=== PATIENT | female | born 1990 | race Caucasian/White ===

== ENCOUNTER 2018-08-22 12:35 | Outpatient (REF) | payer MEDICAID, SELFPAY | END 2018-08-22 12:55 | LOC: NCHCN 12:35 | PROVIDERS: PCP Family Medicine; Visit Provider Nurse Practitioner | DX: J02.9 Acute pharyngitis, unspecified (principal) | CPT/HCPCS: 87070 ==

== ENCOUNTER 2019-12-24 13:34 | Outpatient (REF) | payer SELFPAY ==
[2019-12-26 21:55] LABS: SARS-CoV-2 RNA Undetected (Undetected); SARS-CoV-2 Specimen Source Nasopharynx
== END 2019-12-24 13:54 ==
LOC: NCHCN 13:34
PROVIDERS: PCP Family Medicine; Visit Provider Nurse Practitioner Family
DX: Z11.59 Encounter for screening for other viral diseases (principal)
CPT/HCPCS: U0003

== ENCOUNTER 2021-07-21 14:14 | Outpatient (REF) | payer MEDICAID, SELFPAY ==
--- NOTE | 2021-07-21 11:00 | PAPFT_PTH ---
PAT[facility]: [id number] AGE/SX: 31/F ROOM: RE07/21/[address]: Litzy Mcgee : 1990 BED: DIS: 07/21/2021 SPEC #: [id number] RECD: 07/21/21 17:44 STATUS: LINDA RENehemias #: [id number] BHARAT: 07/21/21 11:[address]: Litzy Mcgee DEPT: [facility] Cytology RECD BY: Jacinda Barrett ENTERED: 07/21/21 17:45 SP TYPE: PAPFT OTHR DR: Judith Bonds Tissues: 1 - CX/ENDOCX FOR PAP SMEARS Procedures: PAP THIN PREP/UVM Screening Comments: [id number] (CHLAMYDIA/GC)
[2021-07-22 11:01] LABS: Hepatitis C Ab w Rflx HCV PCR Negative (Negative)
[2021-07-22 11:02] LABS: HIV-1/2 Ag & Ab Screen Negative (Negative)
[2021-07-22 15:29] LABS: Chlamydia Result Negative (Negative); GC Result Negative (Negative)
[2021-07-24 14:55] LABS: Syphilis IgG w/Reflex Nonreactive (Nonreactive)
== END 2021-07-21 14:15 | disposition home or self-care (01) ==
LOC: NCHCN 14:14
PROVIDERS: PCP Family Medicine; Visit Provider Nurse Practitioner Family
DX: N89.8 Other specified noninflammatory disorders of vagina (principal); Z11.3 Encounter for screening for infections with a predominantly sexual mode of transmission; Z11.4 Encounter for screening for human immunodeficiency virus [HIV]; Z11.59 Encounter for screening for other viral diseases; Z12.4 Encounter for screening for malignant neoplasm of cervix
CPT/HCPCS: 86803; 87389; 87491; 87591; 88142; 86780; 87480; 87510; 87660

== ENCOUNTER 2022-05-31 17:07 | Outpatient (REF) | payer MEDICAID, SELFPAY ==
[2022-06-03 11:17] LABS: COVID-19 RT-PCR UVMMC Result Negative (Negative)
== END 2022-05-31 17:08 | disposition home or self-care (01) ==
LOC: LBN 17:07
PROVIDERS: PCP Family Medicine; Visit Provider Physician Assistant Medical
DX: Z20.822 Contact with and (suspected) exposure to COVID-19 (principal); R53.81 Other malaise
CPT/HCPCS: U0003

== ENCOUNTER 2022-06-06 15:26 | Outpatient (REF) | payer MEDICAID, SELFPAY ==
[2022-06-06 20:45] LABS: HCT 38.2 % (36.0-46.0); HGB 12.7 g/dL (11.2-15.7); MCH 30.2 pg (27.0-33.0); MCHC 33.2 % (32.0-36.0); MCV 91 fL (80-95); MPV 9.6 fL (8.0-11.0); Platelet Count 257 10^3/uL (130-400); RDW 13.3 % (11.7-14.6); RDW-SD 44.3 fL; WBC 10.64 10^3/uL (4.4-10.8)
[2022-06-06 20:58] LABS: ALT 128 U/L (14-59); AST 62 U/L (15-37); Albumin 3.8 g/dL (3.4-5.0); Alkaline Phosphatase 190 U/L (46-116); Anion Gap 8.5 mmol/L (3-11); BUN 7 mg/dL (7-18); Bilirubin, Total 0.3 mg/dL (0.2-1.0); CO2 27.5 mmol/L (21.0-32.0); CREATININE 0.5 mg/dL (0.55-1.02); Calcium 9.2 mg/dL (8.5-10.1); Chloride 102 mmol/L (98-107); Estimated GFR 129.32 (mL/min/1.73m2); Glucose 129 mg/dL (74-106); Potassium 3.4 mmol/L (3.5-5.1); Sodium 138 mmol/L (136-145); Total Protein 7.4 g/dL (6.4-8.2)
== END 2022-06-06 15:27 | disposition home or self-care (01) ==
LOC: NCHCN 15:26
PROVIDERS: PCP Family Medicine; Visit Provider Nurse Practitioner Family
DX: M79.10 Myalgia, unspecified site (principal)
CPT/HCPCS: 80053; 85027; 85025

== ENCOUNTER 2022-07-27 09:15 | Outpatient (REF) | payer MEDICAID, SELFPAY ==
[2022-07-27 14:42] LABS: ALT 31 U/L (14-59); AST 13 U/L (15-37); Alkaline Phosphatase 96 U/L (46-116)
[2022-07-27 14:47] LABS: Hemoglobin A1C 5.3 % (<5.7)
== END 2022-07-27 09:16 | disposition home or self-care (01) ==
LOC: NCHCN 09:15
PROVIDERS: PCP Family Medicine; Visit Provider Nurse Practitioner Family
DX: R74.8 Abnormal levels of other serum enzymes (principal); Z86.32 Personal history of gestational diabetes
CPT/HCPCS: 83036; 84075; 84450; 84460

== ENCOUNTER 2024-06-22 17:10 | Emergency (ER) | payer MEDICAID, SELFPAY ==
[2024-06-22 17:13] VITALS: BP 114/78; PULSE 99; RESP 18; TEMP 36.6; O2SAT 98
--- NOTE | 2024-06-22 18:21 | ED.GENADUL_ITS ---
Discharge Plan Disposition Patient Disposition: Home Discharge Details Clinical Impression: Upper respiratory infection, viral Primary Care Provider: Judith Bonds ED Provider: Janet Johnson Home Meds and New Rx's Prescriptions: No Action No Known Home Meds Discharge Instructions Instructions: Viral Upper Respiratory Infection, Adult (DC) Additional Instructions: Your COVID/flu was negative today. Your symptoms today are most consistent with another viral illness. Please stay well hydrated, drinking plenty of fluids throughout the day. You may use ibuprofen 600 mg every 8 hours and tylenol 650 mg every 8 hours as needed for fever /chills or body aches. Get plenty of rest. Practice good handwashing and wear a mask in public if you are coughing to avoid spreading illness to others. A humidifier and saline nasal spray may be helpful to help reduce congestion and mobilize mucus. I recommend staying home until you have been fever free for 24 hours. Return to emergency care if you develop difficulty breathing, chest pains, worsening of cough or fever after initial improvement, or if you are very worried and need to be rechecked again immediately. HPI General Date/Time Provider Initiated Documentation: 06/22/24 17:42 . HPI Narrative: Samantha is a 34 year old female who presents to the emergency department today for evaluation of viral symptoms including fever above 102, headache, congestion, sore throat, and nausea. Denies ear pain, cough, vomiting, change in p.o. intake, change in bowel or bladder function. Has been using ibuprofen for body aches/fever. Denies significant past medical history. Has not had COVID or flu vaccination. Physical exam reassuring. Samantha is alert and oriented, no acute distress. Moist mucous membranes. Mild oropharyngeal erythema, no tonsillar hypertrophy/erythema/exudate. No cervical or submandibular lymphadenopathy. Easy work of breathing, lung sounds clear bilaterally. Normal heart sounds. History and presentation consistent with viral symptoms. No red flags concerning for bacterial infection such as strep throat, AOM, pneumonia requiring emergent diagnostic imaging or labs. I independently interpreted the following tests: COVID/flu negative. Brother lives in a household and has similar symptoms tested positive for flu A. Tachycardia noted, likely mild dehydration. Reviewed discharge instructions with patient, including symptomatic management and red flags indicating need for return to emergency care Related Data Home Medications ?Medication ?Instructions ?Recorded ?Confirmed Unknown [No Known Home Meds] 06/22/24 06/22/24 Allergies Allergy/AdvReac Type Severity Reaction Status Date / Time No Known Allergies Allergy Unverified 06/22/24 17:17 General Stated Complaint: RespSymp DALE: 4 Review of Systems Narrative: see HPI Exam Const General: cooperative, healthy appearing, comfortable, no acute distress, well developed and well groomed Nutritional Appearance: average body habitus and well nourished Orientation: alert and oriented x3 HENMT Head: normal to inspection Ears: hearing grossly normal bilaterally General nose exam: external nose normal Face and sinus: normal facial exam Mouth: oral mucosae normal and moist mucous membranes Throat: posterior oropharynx abnormal erythema; no exudates Neck Neck: normal visual inspection, full ROM and no lymphadenopathy Resp Effort & Inspection: normal respiratory effort and able to speak in complete sentences Auscultation: clear to auscultation bilaterally Cardio Rate: regular rate Rhythm: regular rhythm Skin General skin exam: no rashes or lesions noted Course Vital Signs Vital signs: Vital Signs Temperature 36.6 C 06/22/24 17:13 Pulse 99 H 06/22/24 17:13 Respiratory Rate 18 06/22/24 17:13 Blood Pressure 114/78 06/22/24 17:13 Pulse Oximetry 98 06/22/24 17:13 Temperature 36.6 C 06/22/24 17:13 Pulse 99 H 06/22/24 17:13 Respiratory Rate 18 06/22/24 17:13 Blood Pressure 114/78 06/22/24 17:13 Pulse Oximetry 98 06/22/24 17:13 Pain Level 0 06/22/24 17:13 Medical Decision Making Quality:SDOH Health Related Social Needs: No Data to Display PFSH All Active Problems (Updated 06/22/24 @ 18:41 by Janet Muñoz) Upper respiratory infection, viral (Acute) Social History Smoking risk assessment performed?: No Alcohol Intake: never Substance use type: does not use Housing: house Do you feel safe in your relationship?: Yes
[2024-06-22 18:40] VITALS: BP 112/85; PULSE 101; TEMP 37.5; O2SAT 95
[2024-06-22 19:14] VITALS: BP 112/85; PULSE 101; TEMP 37.5; O2SAT 95
== END 2024-06-22 19:14 | disposition home or self-care (01) ==
PROVIDERS: Emergency Provider Nurse Practitioner Family; PCP Family Medicine
DX: J06.9 Acute upper respiratory infection, unspecified (principal); B97.89 Other viral agents as the cause of diseases classified elsewhere
CPT/HCPCS: 87426; 99283

== ENCOUNTER 2024-07-11 21:29 | Outpatient (REF) | payer MEDICAID, SELFPAY ==
[2024-07-11 22:17] LABS: TSH (W/Ref FT4) 0.84 uIU/mL (0.36-3.74)
== END 2024-07-11 21:30 | disposition home or self-care (01) ==
LOC: NCHCN 21:29
PROVIDERS: PCP Family Medicine; Visit Provider Nurse Practitioner Family
DX: E66.9 Obesity, unspecified (principal); Z68.30 Body mass index [BMI] 30.0-30.9, adult
CPT/HCPCS: 84443

== ENCOUNTER 2024-08-19 12:46 | Emergency (ER) | payer MEDICAID, SELFPAY ==
[2024-08-19] VITALS (25 sets, daily range): BP systolic 97–121; BP diastolic 67–86; PULSE 88–113; RESP 13–27; TEMP 36.6–36.7; O2SAT 95–100
--- NOTE | 2024-08-19 13:42 | ED.GENADUL_ITS ---
Discharge Plan Discharge Details Chief Complaint: Nausea/Vomit/Diar Primary Care Provider: Litzy Mcgee ED Provider: Julianne Coulter Home Meds and New Rx's Prescriptions: No Action ondansetron HCl 4 mg tablet 4 mg PO TID PRN [facility] General Mode of arrival: ambulatory . Date/Time Provider Initiated Documentation: 08/19/24 13:02 . Limitations to Documentation: no limitations . Information obtained by: patient, RN notes reviewed and old records reviewed . HPI Narrative: 34-year-old female presents to the ER with a chief complaint of nausea vomiting which began on Sunday and also diarrhea. Patient was given Zofran by her PCP on Sunday morning. Since then she has had continued diarrhea and generalized abdominal discomfort. She does have a history of cholecystectomy, she is on the Mirena. She reports fatigue chills and fever. Related Data Home Medications ?Medication ?Instructions ?Recorded ?Confirmed ondansetron HCl 4 mg tablet 4 mg PO TID PRN 08/19/24 08/19/24 Allergies Allergy/AdvReac Type Severity Reaction Status Date / Time No Known Allergies Allergy Unverified 08/19/24 12:54 General Stated Complaint: Nausea/Vomit/Diar DALE: 3 Review of Systems All systems reviewed & are unremarkable except as noted in HPI and below Constitutional Constitutional: Reports chills and Reports fever(s) Gastrointestinal Gastrointestinal: Reports as per HPI, Reports diarrhea, Reports nausea and Reports vomiting Exam Narrative Exam Narrative: Constitutional: Alert and oriented x3. Appears stated age. Normal body habitus. Head: Normocephalic, no trauma. Eyes: Pupils PERRL, Red reflex noted, EOM's intact. Eyelids symmetrical without lesions, discharge, or swelling. ENT: Bilateral TM's WNL, External ear normal to inspection, no mastoid TTP, swelling, or erythema, Nasal turbinates WNL, no nasal discharge. Normal dentition, Posterior pharynx WNL, no exudate. Chest: RRR, Normal S1, S2, distal pulses intact. Resp: Lungs clear to auscultation bilaterally, no wheezes, rales, or rhonchi. Abdomen: Soft, non-distended, Normoactive bowel sounds all 4 quads. Musculoskeletal: Normal gait, Moves all 4 extremities without difficulty. Skin: No suspicious rashes or lesions. Capillary refill less than 2 sec. Neurologic: Cranial nerves II-XII intact. Alert and oriented x 3. Motor: No deficits noted. Sensory: Intact bilaterally all 4 extremities. Hematologic/Lymphatic: No ecchymosis, no lymphadenopathy. Course Vital Signs Vital signs: Vital Signs Pulse 101 H 08/19/24 12:52 Respiratory Rate 16 08/19/24 12:52 Blood Pressure 121/76 08/19/24 12:52 Pulse Oximetry 97 08/19/24 12:52 Pulse 101 H 08/19/24 12:52 Respiratory Rate 16 08/19/24 12:52 Blood Pressure 121/76 08/19/24 12:52 Blood Pressure Position Sitting 08/19/24 12:52 Pulse Oximetry 97 08/19/24 12:52 Oxygen Delivery Method Room Air 08/19/24 12:52 Oxygen Flow Rate 0 08/19/24 12:52 Medical Decision Making 34-year-old female presents to the ER with a chief complaint of nausea vomiting which began on Sunday and also diarrhea. Patient was given Zofran by her PCP on Sunday morning. Since then she has had continued diarrhea and generalized abdominal discomfort. She does have a history of cholecystectomy, she is on the Mirena. She reports fatigue chills and fever. Workup ordered including CBC CMP, lipase urinalysis liter of normal saline, flu and COVID swab, CBC shows a white blood cell count of 11.65 hemoglobin 16 hematocrit 48.2, absolute neutrophils 7.3, sodium 142 potassium 2.8 anion gap 12.5 BUN 20 creatinine 0.6, lipase 23. Urinalysis is pending at this time. Magnesium within normal limits. Negative COVID flu. Will give 40 mEq of potassium p.o. and 10 mill equivalents IV. Care is to be handed off to oncoming provider PARI Au pending potassium infusion and reevaluation most likely disposition is discharge home. Discussed plan of care with patient she verbalized understanding. She reports that her nausea is much better after the Reglan. Currently in her normal saline is infusing at this time. Lab Data Lab results reviewed: Yes I reviewed the patient's lab results. Labs: Laboratory Tests Range/Units 08/19/24 14:51 WBC (4.4-10.8) 10^3/uL 11.65 H RBC (3.93-5.22) 10^6/uL 5.34 H Hgb (11.2-15.7) g/dL 16.0 H Hct (36.0-46.0) % 48.2 H MCV (80-95) fL 90 MCH (27.0-33.0) pg 30.0 MCHC (32.0-36.0) % 33.2 RDW (11.7-14.6) % 12.3 Plt Count (130-400) 10^3/uL 280 MPV (8.0-11.0) fL 9.3 Immature Gran % % 0.5 Neutrophils % % 67.2 Lymphocytes % % 19.6 Monocytes % % 10.7 Eosinophils % % 1.6 Basophils % % 0.4 Nucleated RBC % (0.0-0.3) % 0.0 Absolute Neutrophils (1.2-6.7) 10^3/uL 7.83 H Absolute Lymphocytes (1.2-3.4) 10^3/uL 2.28 Absolute Monocytes (0.1-0.8) 10^3/uL 1.25 H Absolute Eosinophils (0.0-0.7) 10^3/uL 0.19 Absolute Basophils (0.0-0.2) 10^3/uL 0.05 Sodium (136-145) mmol/L 142 Potassium (3.5-5.1) mmol/L 2.8 L* Chloride (98-107) mmol/L 102 Carbon Dioxide (21.0-32.0) mmol/L 27.5 Anion Gap (3-11) mmol/L 12.5 H BUN (7-18) mg/dL 20 H Creatinine (0.55-1.02) mg/dL 0.6 Est GFR (CKD-EPI 2020) (mL/min/1.73m2) 122.23 Glucose (74-106) mg/dL 97 Calcium (8.5-10.1) mg/dL 9.5 Magnesium (1.8-2.4) mg/dL 2.2 Total Bilirubin (0.2-1.0) mg/dL 0.3 AST (15-37) U/L 28 ALT (14-59) U/L 61 H Alkaline Phosphatase (46-116) U/L 107 Total Protein (6.4-8.2) g/dL 8.5 H Albumin (3.4-5.0) g/dL 4.2 Lipase (<78) U/L 23 Quality:SDOH Health Related Social Needs: No Data to Display PFSH All Active Problems Pain in both feet (Acute) Plantar verruca (Acute) Social History Smoking/Tobacco Use Status: Never Smoking risk assessment performed?: Yes Alcohol Intake: never Drug use: Never Substance use type: does not use Housing: house Do you feel safe in your relationship?: Yes
[2024-08-19 14:59] LABS: Abs Immature Grans 0.06 10^3/uL (0.0-0.06); Absolute Basophil Count 0.05 10^3/uL (0.0-0.2); Absolute Eosinophil Count 0.19 10^3/uL (0.0-0.7); Absolute Lymphocyte Count 2.28 10^3/uL (1.2-3.4); Absolute Monocyte Count 1.25 10^3/uL (0.1-0.8); Basophils % 0.4 %; Eosinophils % 1.6 %; HCT 48.2 % (36.0-46.0); Immature Grans % 0.5 %; Lymphocytes % 19.6 %; MCHC 33.2 % (32.0-36.0); MCV 90 fL (80-95); MPV 9.3 fL (8.0-11.0); Monocytes % 10.7 %; Neutrophils % 67.2 %; Platelet Count 280 10^3/uL (130-400); RBC 5.34 10^6/uL (3.93-5.22); RDW 12.3 % (11.7-14.6); RDW-SD 41.1 fL; WBC 11.65 10^3/uL (4.4-10.8)
[2024-08-19 15:02] LABS: Absolute Neutrophil Count 7.83 10^3/uL (1.2-6.7)
[2024-08-19] MEDS: Normal Saline 1,000 ML 1000 ML IV (15:08)
[2024-08-19] MEDS: Metoclopramide 10 MG/2 ML VIAL IVP (15:08)
[2024-08-19 15:14] LABS: Lipase 23 U/L (<78)
[2024-08-19 15:24] LABS: ALT 61 U/L (14-59); AST 28 U/L (15-37); Albumin 4.2 g/dL (3.4-5.0); Alkaline Phosphatase 107 U/L (46-116); Anion Gap 12.5 mmol/L (3-11); BUN 20 mg/dL (7-18); Bilirubin, Total 0.3 mg/dL (0.2-1.0); CO2 27.5 mmol/L (21.0-32.0); CREATININE 0.6 mg/dL (0.55-1.02); Calcium 9.5 mg/dL (8.5-10.1); Chloride 102 mmol/L (98-107); Estimated GFR 122.23 (mL/min/1.73m2); Glucose 97 mg/dL (74-106); Magnesium 2.2 mg/dL (1.8-2.4); Sodium 142 mmol/L (136-145); Total Protein 8.5 g/dL (6.4-8.2)
[2024-08-19 15:26] LABS: Potassium 2.8 mmol/L (3.5-5.1)
[2024-08-19] MEDS: POTASSIUM CHLORIDE 10 MEQ/100 ML BAG 100 MEQ IV_INF (15:46)
[2024-08-19] MEDS: Potassium Chloride Liquid 20 MEQ PKT 40 MEQ PO (15:46)
[2024-08-19] MEDS: MAGNESIUM SULFATE 1 GM/100 ML BAG IV_INF (16:28)
== END 2024-08-19 18:14 | disposition home or self-care (01) ==
PROVIDERS: Registered Nurse Emergency; Emergency Provider Physician Assistant; PCP Nurse Practitioner Family
DX: R11.2 Nausea with vomiting, unspecified (principal); R19.7 Diarrhea, unspecified; E87.6 Hypokalemia
CPT/HCPCS: 36415; 80053; 81025; 83690; 96361; 96365; 96366; 96368; 96375; 99284; 81003; 83735; 85025; J2765; J3475; J3480

== ENCOUNTER 2024-12-29 15:55 | Outpatient (CLI) | payer SELFPAY ==
[2024-12-29 14:41] LABS: Glucose Negative (Negative)
== END 2024-12-29 15:56 | disposition home or self-care (01) ==
LOC: LBO 15:55
PROVIDERS: PCP Nurse Practitioner Family; Visit Provider Nurse Practitioner Family
DX: R39.89 Other symptoms and signs involving the genitourinary system (principal)
CPT/HCPCS: 81003; 81015

== ENCOUNTER 2025-05-11 06:08 | Emergency (ER) | payer SELFPAY ==
[2025-05-11] VITALS (20 sets, daily range): BP systolic 104–122; BP diastolic 65–86; PULSE 67–92; RESP 13–25; TEMP 36.6–36.8; O2SAT 94–99
--- NOTE | 2025-05-11 06:30 | RT.EKG_ITS ---
APPROVED REPORT Exam: Resting ECG Reason for Exam: Chest Pain Patient Location: E HR:74 bpm ECG Measurements Heart Rate 74 AXIS ME 139 P 45 QRSd 84 QRS -9 QT 382 T 1 QTc 425 Conclusion Sinus rhythm...normal P axis, V-rate 60- 99 Low voltage, precordial leads...precordial leads <1.0mV
[2025-05-11 07:28] LABS: Abs Immature Grans 0.04 10^3/uL (0.0-0.06); HCT 42.2 % (36.0-46.0); HGB 14.0 g/dL (11.2-15.7); Immature Grans % 0.4 %; MCH 29.5 pg (27.0-33.0); MCHC 33.2 % (32.0-36.0); MCV 89 fL (80-95); MPV 9.3 fL (8.0-11.0); Platelet Count 306 10^3/uL (130-400); RBC 4.74 10^6/uL (3.93-5.22); RDW 12.1 % (11.7-14.6); RDW-SD 39.8 fL; WBC 10.22 10^3/uL (4.4-10.8)
--- NOTE | 2025-05-11 07:30 | DI.CT_ITS ---
Exam(s) CT CAROTID NECK CTA EXAM: CT CAROTID NECK CTA CLINICAL HISTORY: chest pain right radiating up neck. TECHNIQUE: Imaging Protocol: Axial CT angiography was performed with multi- slice acquisition and multi-planar and/or 3D reconstructions. CONTRAST MATERIAL: Intravenous: Omnipaque 350 Contrast volume:70 mL COMPARISON: No exams were available for comparison FINDINGS: CTA Neck W: Common Carotid: Right: No aneurysm, occlusion or significant stenosis. Left: No aneurysm, occlusion or significant stenosis. External Carotid: Right: No aneurysm, occlusion or significant stenosis. Left: No aneurysm, occlusion or significant stenosis. Internal Carotid: Right: No aneurysm, occlusion or significant stenosis. Left: No aneurysm, occlusion or significant stenosis. Vertebral Artery: Right: No aneurysm, occlusion or significant stenosis. Left: No aneurysm, occlusion or significant stenosis. Lung Apices: Normal. Bones: Unremarkable. Soft Tissues: Normal. IMPRESSION: Normal CTA examination of the neck. No evidence of occlusion, significant stenosis or dissection. RADIATION DOSE DELIVERED: 241.43 mGy.cm Total DLP 241.43 mGy.cm Total DLP DATA REPOSITORY: All CT scans at this facility are submitted to the National Radiology Data Registry (NRDR) Dose Index Registry (DIR) with the [employer] (ACR). RADIATION OPTIMIZATION: All CT scans at this facility use at least one of these dose optimization techniques: automated exposure control; mA and/or kV adjustment per patient size (includes targeted exams where dose is matched to clinical indication); or iterative reconstruction.
--- NOTE | 2025-05-11 07:30 | DI.CT_ITS ---
Exam(s) CT THORAX CTA EXAM: CT THORAX CTA CLINICAL HISTORY: chest pain right radiating up neck. TECHNIQUE: Imaging Protocol: Axial CT angiography was performed with multi- slice acquisition and multi-planar and/or 3D reconstructions. Lung Computer Aided Detection (CAD) was utilized. CONTRAST MATERIAL: Intravenous: Omnipaque 350 contrast volume:60 mL COMPARISON: No exams were available for comparison FINDINGS: Tracheobronchial tree: Patent where visualized. No bronchiectasis. Pulmonary parenchyma: No consolidation or dominant measurable mass. No architectural distortion. Pulmonary Arteries: No evidence of filling defect to suggest pulmonary emboli. Mediastinum and Sahra: No dominant adenopathy or fluid collection. The esophagus is unremarkable. Visualized thyroid gland: Unremarkable. Pleura: No effusion or pneumothorax. Heart: The heart is not dilated. No coronary artery calcifications are seen. No pericardial effusion. Aorta: Thoracic aorta non-dilated. No evidence of dissection. Upper abdomen: Unremarkable. Soft tissues: Unremarkable. Bones: Within normal limits for the patient's age. IMPRESSION: 1. No evidence of pulmonary embolism, thoracic aortic dissection or aneurysm. 2. No acute pulmonary process. RADIATION DOSE DELIVERED: 218.27mGy.cm Total DLP 218.27mGy.cm Total DLP DATA REPOSITORY: All CT scans at this facility are submitted to the National Radiology Data Registry (NRDR) Dose Index Registry (DIR) with the [employer] (ACR). RADIATION OPTIMIZATION: All CT scans at this facility use at least one of these dose optimization techniques: automated exposure control; mA and/or kV adjustment per patient size (includes targeted exams where dose is matched to clinical indication); or iterative reconstruction.
--- NOTE | 2025-05-11 07:35 | W.ED.GENAD ---
Discharge Plan Disposition Patient Disposition: Home Condition: Stable Discharge Details Clinical Impression: Pain, dental, Chest pain Primary Care Provider: Litzy Mcgee ED Provider: Forrest Martinez Home Meds and New Rx's Prescriptions: New ketorolac 10 mg tablet 10 mg PO Q8H PRNQty: 30 0RF Rx Instructions: maximum total duration of 5 days from all oral, intranasal, or parenteral formulations penicillin V potassium 500 mg tablet 500 mg PO QID Qty: 40 0RF Discharge Instructions Instructions: Chest Pain, Adult ED, Dental Pain ED Additional Instructions: CT imaging today did not reveal any concerning abnormalities. There were no significant abnormalities on your diagnostic lab testing. Please follow-up with your dentist. Call to schedule an appointment. Please follow-up with your primary care physician. You should be seen for reassessment later this week. Additional outpatient diagnostic testing may be necessary should you continue to have symptoms. Please take a baby aspirin (81mg) daily. Please return to the emergency department immediately for any worsening or new concerning symptoms. Stand Alone Forms: Portal Information Referrals: Litzy Mcgee [Primary Care Provider, Medicine] Discharge Data Discharge Date/Time-TO BE ENTERED AT DEPARTURE: 05/11/25 10:59 HPI General Mode of arrival: ambulatory. Date/Time Provider Initiated Documentation: 05/11/25 06:40. Limitations to Documentation: no limitations. Information obtained by: patient. HPI Narrative: HISTORY OF PRESENT ILLNESS 35-year-old female patient presenting with chest pain. The patient has been experiencing dental pain radiating into the jaw and ear for the past few days. This morning, she began experiencing chest pain that radiates down right side from neck, a symptom she has not previously encountered. The pain is described as sharp and intense, with a current severity of 4 on a scale of 0 to 10. It is accompanied by a sensation of tightness in her chest. The onset of these symptoms was four days ago, on 05/07/2025. She reports no swelling or other medical issues. The patient does not smoke or use drugs but consumes alcohol occasionally. She has felt nauseous but reports no shortness of breath, leg swelling, or fever. She has been managing the pain with Tylenol 500 mg and has also taken clindamycin, which she had leftover from a previous prescription, but it did not alleviate the pain. The patient sought dental care during the summer due to similar tooth pain and was prescribed antibiotics, which resolved the issue. However, the pain recurred a few days ago. Dental x-rays taken during the summer did not reveal any abnormalities. She was previously on Zepbound injections but has discontinued them due to insurance issues. The patient mentioned that her insisted on seeking medical care despite financial concerns. Related Data Home Medications ?Medication ?Instructions ?Recorded ?Confirmed ketorolac 10 mg tablet 10 mg PO Q8H PRN #30 tabs 05/11/25 penicillin V potassium 500 mg 500 mg PO QID #40 tabs 05/11/25 tablet Previous Rx's ?Medication ?Instructions ?Recorded ketorolac 10 mg tablet 10 mg PO Q8H PRN #30 tabs 05/11/25 penicillin V potassium 500 mg 500 mg PO QID #40 tabs 05/11/25 tablet Allergies Allergy/AdvReac Type Severity Reaction Status Date / Time No Known Allergies Allergy Unverified 08/19/24 12:54 General Stated Complaint: Chest Pain DALE: 3 Review of Systems All systems reviewed & are unremarkable except as noted in HPI and below Constitutional Constitutional: Denies fever(s) Cardiovascular Cardiovascular: Reports as per HPI Exam Const General: cooperative and no acute distress HENMT Mouth: moist mucous membranes Eyes Conjunctivae: normal conjunctivae Sclera: normal sclerae Neck Neck: trachea midline and supple Thyroid: thyroid normal Lymphatic: no lymphadenopathy noted Resp Auscultation: clear to auscultation bilaterally, no rales, no rhonchi and no wheezes Cardio Jugular venous pressure: no JVD Rate: regular rate and not tachycardic Rhythm: regular rhythm GI Palpation: soft, not firm, no guarding, no masses, not rigid and nontender Skin General skin exam: no rashes or lesions noted Neuro General: patient alert, patient awake, patient oriented x3 and tone normal Extrem General: no edema Psych Appearance: grossly normal Mental Status: mental status grossly normal Speech and Movement: speech and movement normal Course Vital Signs Vital signs: Vital Signs Pulse 83 05/11/25 06:47 Respiratory Rate 14 05/11/25 06:47 Blood Pressure 122/85 05/11/25 06:47 Pulse Oximetry 99 05/11/25 06:47 Temperature 36.6 C 05/11/25 06:50 Temperature Source Temporal Artery Scan 05/11/25 06:50 Pulse 81 05/11/25 07:20 Pulse 81 05/11/25 07:20 Respiratory Rate 25 H 05/11/25 07:20 Respiratory Effort Normal, Non-Labored 05/11/25 06:49 Respiratory Depth Normal 05/11/25 06:49 Respiratory Pattern Normal 05/11/25 06:49 Blood Pressure 104/65 05/11/25 07:15 Blood Pressure Mean 78 05/11/25 07:15 Blood Pressure Position Sitting 05/11/25 06:47 Pulse Oximetry 99 05/11/25 07:20 Oxygen Delivery Method Room Air 05/11/25 06:47 Oxygen Flow Rate 0 05/11/25 06:47 Lab/Test Results Lab/Test Results: Laboratory Tests Range/Units 05/11/25 07:20 WBC (4.4-10.8) 10^3/uL 10.22 RBC (3.93-5.22) 10^6/uL 4.74 Hgb (11.2-15.7) g/dL 14.0 Hct (36.0-46.0) % 42.2 MCV (80-95) fL 89 MCH (27.0-33.0) pg 29.5 MCHC (32.0-36.0) % 33.2 RDW (11.7-14.6) % 12.1 Plt Count (130-400) 10^3/uL 306 MPV (8.0-11.0) fL 9.3 Immature Gran % % 0.4 Neutrophils % % 60.7 Lymphocytes % % 28.8 Monocytes % % 6.5 Eosinophils % % 2.8 Basophils % % 0.8 Nucleated RBC % (0.0-0.3) % 0.0 Absolute Neutrophils (1.2-6.7) 10^3/uL 6.21 Absolute Lymphocytes (1.2-3.4) 10^3/uL 2.94 Absolute Monocytes (0.1-0.8) 10^3/uL 0.66 Absolute Eosinophils (0.0-0.7) 10^3/uL 0.29 Absolute Basophils (0.0-0.2) 10^3/uL 0.08 Medical Decision Making ASSESSMENT AND PLAN Initial Assessment: 35yo female here with rt lower dental /jaw pain radiating into right neck and right chest pain, described as tightness and intermittent sharp pain. Pain started four days ago. No associated swelling, fever, or shortness of breath. Recurrent tooth pain in the same area as experienced during the summer. Previous dental x-rays did not reveal any issues. Differential Diagnosis: Consider aneurysm versus aortic dissection Consider tamponade infection with deep space infection Less likely ACS ED Course: - EKG was reviewed and interpreted by me: Please report, T wave inversion lead III, V1-V3, no old for comparison. Plan to check troponin and trend. - CT scan ordered to image blood vessels and soft tissues in the chest - CT of the thorax interpreted by radiology: 1. No evidence of pulmonary embolism, thoracic aortic dissection or aneurysm. 2. No acute pulmonary process. - CT of the neck interpreted by radiology: Normal CTA examination of the neck. No evidence of occlusion, significant stenosis or dissection. - Labs reviewed and nondiagnostic. No leukocytosis. Initial and second troponin negative and unchanged. - Patient reassessed and is stable. Plan for discharge with outpatient follow-up with dentist and PCP. All results discussed with patient. Usual and customary discharge instructions were reviewed. 05/11/25 ([phone] --patient called requesting additional analgesic. I spoke with the patient and will prescribe Toradol 10 mg oral tablet and will also start penicillin 500 mg 4 times daily x 10 days in case this is an early dental infection. Clinical impression: Dental pain and chest pain Follow-Up: PCP and dentist This document was written with the assistance of OZZIE Yao. The patient consented to its use. Lab Data Lab results reviewed: Yes I reviewed the patient's lab results. Labs: Laboratory Tests Range/Units 05/11/25 05/11/25 07:20 08:38 WBC (4.4-10.8) 10^3/uL 10.22 RBC (3.93-5.22) 10^6/uL 4.74 Hgb (11.2-15.7) g/dL 14.0 Hct (36.0-46.0) % 42.2 MCV (80-95) fL 89 MCH (27.0-33.0) pg 29.5 MCHC (32.0-36.0) % 33.2 RDW (11.7-14.6) % 12.1 Plt Count (130-400) 10^3/uL 306 MPV (8.0-11.0) fL 9.3 Immature Gran % % 0.4 Neutrophils % % 60.7 Lymphocytes % % 28.8 Monocytes % % 6.5 Eosinophils % % 2.8 Basophils % % 0.8 Nucleated RBC % (0.0-0.3) % 0.0 Absolute Neutrophils (1.2-6.7) 10^3/uL 6.21 Absolute Lymphocytes (1.2-3.4) 10^3/uL 2.94 Absolute Monocytes (0.1-0.8) 10^3/uL 0.66 Absolute Eosinophils (0.0-0.7) 10^3/uL 0.29 Absolute Basophils (0.0-0.2) 10^3/uL 0.08 APTT (20.6-30.2) sec 25.4 Sodium (136-145) mmol/L 142 Potassium (3.5-5.1) mmol/L 3.7 Chloride (98-107) mmol/L 107 Carbon Dioxide (20.0-31.0) mmol/L 25.7 Anion Gap (3-11) mmol/L 9.3 BUN (9-23) mg/dL 9 Creatinine (0.55-1.02) mg/dL 0.42 L Est GFR (CKD-EPI 2020) (mL/min/1.73m2) 173.59 Glucose (74-106) mg/dL 93 Calcium (8.3-10.6) mg/dL 9.4 Magnesium (1.6-2.6) mg/dL 2.0 Total Bilirubin (0.2-1.2) mg/dL 0.4 AST (<34) U/L 18 ALT (10-49) U/L 30 Alkaline Phosphatase (46-116) U/L 94 Troponin I (<35) ng/L < 3 < 3 Total Protein (5.7-8.2) g/dL 7.6 Albumin (3.2-5.0) g/dL 4.7 PFSH All Active Problems (Updated 05/11/25 @ 10:46 by Forrest Martinez MD) Chest pain (Acute) Pain, dental (Acute) Pain in both feet (Acute) Plantar verruca (Acute) Social History Smoking/Tobacco Use Status: Never Smoking risk assessment performed?: Yes Alcohol Intake: never Drug use: Never Substance use type: does not use Housing: house Do you feel safe in your relationship?: Yes
[2025-05-11 07:43] LABS: PTT Activated 25.4 sec (20.6-30.2)
[2025-05-11 07:46] LABS: Magnesium 2.0 mg/dL (1.6-2.6)
[2025-05-11 07:48] LABS: ALT 30 U/L (10-49); AST 18 U/L (<34); Albumin 4.7 g/dL (3.2-5.0); Alkaline Phosphatase 94 U/L (46-116); Anion Gap 9.3 mmol/L (3-11); BUN 9 mg/dL (9-23); Bilirubin, Total 0.4 mg/dL (0.2-1.2); CO2 25.7 mmol/L (20.0-31.0); Calcium 9.4 mg/dL (8.3-10.6); Chloride 107 mmol/L (98-107); Glucose 93 mg/dL (74-106); Potassium 3.7 mmol/L (3.5-5.1); Sodium 142 mmol/L (136-145); Total Protein 7.6 g/dL (5.7-8.2)
[2025-05-11 07:50] LABS: Troponin I < 3 ng/L (<35)
[2025-05-11] MEDS: Ketorolac 15 MG/ML VIAL IVP (08:15)
[2025-05-11] MEDS: Omnipaque 350 MG/ML 100 ML BTL IJ (08:38)
[2025-05-11] MEDS: Normal Saline - Diluent 50 ML VIAL IJ ×2 (08:38→08:40)
[2025-05-11] MEDS: Omnipaque 350 MG/ML 50 ML BTL IJ (08:40)
[2025-05-11 09:01] LABS: Troponin I < 3 ng/L (<35)
== END 2025-05-11 10:59 | disposition home or self-care (01) ==
PROVIDERS: Emergency Provider Student in an Organized Health Care Education/Training Program; PCP Nurse Practitioner Family
DX: R07.9 Chest pain, unspecified (principal); R68.84 Jaw pain; K08.89 Other specified disorders of teeth and supporting structures
CPT/HCPCS: 99284; 99285; 96374; 36415; 81025; 70498; 71275; 80053; 93005; 83735; 84484; 85025; 85730; 93010; J1885; J3490; Q9967